=== PATIENT | female | born 1960 | race American Indian/Alaskan Native ===

== ENCOUNTER 2017-07-10 23:21 | Emergency (ER) | payer SELFPAY | END 2017-07-11 | disposition left against medical advice (07) | LOC: ED 23:21 | DX: H57.12 Ocular pain, left eye (principal); Z88.6 Allergy status to analgesic agent; Z88.1 Allergy status to other antibiotic agents; Z53.21 Procedure and treatment not carried out due to patient leaving prior to being seen by health care provider ==

== ENCOUNTER 2017-07-11 10:53 | Emergency (ER) | payer BC ==
[2017-07-11 11:13] VITALS: BP 131/79
[2017-07-11] MEDS ORDERED: MOTRIN PO ONE (11:29)
[2017-07-11] MEDS ORDERED: FUL-GLO OP ONE (11:29)
== END 2017-07-11 11:55 | disposition home or self-care (01) ==
LOC: ED 10:53
DX: H16.002 Unspecified corneal ulcer, left eye (principal)
CPT/HCPCS: 99282

== ENCOUNTER 2017-08-12 20:37 | Emergency (ER) | payer BC ==
--- NOTE | 2017-08-12 22:31 | XRay Report ---
FINAL REPORT EXAM: XR FINGER(S) 2+V RT HISTORY: RIGHT MIDDLE FINGER PAIN TECHNIQUE: Frontal view of right hand and 2 views of right long finger. PRIORS: None. FINDINGS: Joint spaces maintained. No apparent fracture or dislocation. Soft tissues grossly unremarkable. IMPRESSION: 1. No acute osseous abnormality.
[2017-08-13 00:06] VITALS: BP 130/79
== END 2017-08-12 20:45 | disposition left against medical advice (07) ==
LOC: ED 20:37
DX: Z53.21 Procedure and treatment not carried out due to patient leaving prior to being seen by health care provider (principal)

== ENCOUNTER 2017-08-19 14:32 | Outpatient (CLI) | payer BC ==
--- NOTE | 2017-08-21 09:45 | Mammography Report ---
Bilateral mammogram with tomosynthesis right breast: Compared to 11/26/15.. CAD study utilized. Findings: Heterogeneous breast parenchyma bilaterally. No mass or microcalcification or focal asymmetry on michael. Biopsy clip right breast. Benign axilla. BI-RADS CATEGORY: 2 = Benign ACR BI-RADS MAMMOGRAPHIC CODES: 0 = Needs additional imaging evaluation; 1 = Negative; 2 = Benign; 3 = Probably benign; 4 = Suspicious; 5 = Malignant; 6 = Known biopsy-proven malignancy COMMENT: 1. Dense breast tissue, i.e., adenosis, fibrocystic changes, etc., may obscure an underlying neoplasm. 2. Approximately 10% of cancers are not detected with mammography. 3. A negative mammography report should not delay biopsy if a clinically suspicious mass is present.right breast. Benign axillary nodes. Impression: Benign findings. Annual followup recommended.
== END 2017-08-19 14:33 | disposition home or self-care (01) ==
LOC: MAMMO 14:32
PROVIDERS: ATTEND Family Medicine
DX: Z12.31 Encounter for screening mammogram for malignant neoplasm of breast (principal)
CPT/HCPCS: 77063; G0202; 77067

== ENCOUNTER 2017-09-14 08:34 | Emergency (ER) | payer BC ==
[2017-09-14 08:45] VITALS: BP 133/74
--- NOTE | 2017-09-14 09:40 | Emergency Department Report ---
ED Upper Extremity Inj HPI - General Chief Complaint: Extremity Injury, Upper Stated Complaint: RT MIDDLE FINGER PAIN Time Seen by Provider: 09/14/17 09:24 Source: patient Mode of arrival: Ambulatory Limitations: No Limitations - History of Present Illness Initial Comments: This is a 56-year-old female nontoxic, well nourished in appearance, no acute signs of distress presents to the ED complaining of right third digit finger times one month. He stated last month on 08/12/2017 she injured her right middle finger when her phone fell between her car seat and she tried to get it and had a twisting sensation of the right third digit was developed pain and swelling. Patient stated that swelling has subsided but there is still pain. Patient discussed pain as aching with level of 8 out of 10. She denies any new trauma to the region. Denies joint redness, joint swelling, warmth to touch, fever, chills, nausea, vomiting, chest pain, shortness of breath, numbness or tingling. Patient states allergies to influenza. Medical history includes total hysterectomy. Patient states she was seen here last month and received an x-ray with negative for fractures and patient received a splint and was instructed to follow-up with the orthopedic doctor but patient states she never did. Patient now presents to the ED stating that the pain has not subsided. Complaint: Injury to:: right, finger -: month(s) (1) Other Extremity Injury: Fingers: Right (third digit of the right hand) Other Injuries: none Place: outdoors Severity scale (0 -10): 8 Improves With: none Worsens With: none Context: injury Associated Symptoms: denies other symptoms. denies: weakness, numbness, neck pain, suspects foreign body, nausea/vomiting, heard/felt popping sensat - Related Data Previous Rx's Medication Instructions Recorded Last Taken Type Ibuprofen [Motrin] 600 mg PO Q8H PRN #20 tablet 07/11/17 Unknown Rx Tobramycin 0.3% [Tobrex] 1 drop OS QID #1 bottle 07/11/17 Unknown Rx Ibuprofen [Motrin 600 MG tab] 600 mg PO Q8H PRN #30 tablet 09/14/17 Unknown Rx Allergies Allergy/AdvReac Type Severity Reaction Status Date / Time influenza virus vacc Allergy Shortness Verified 07/11/17 11:14 trivalent, spl of Breath [From Fluzone] PPD black rubber mix Allergy Unknown Verified 07/11/17 11:14 ED Review of Systems ROS: Stated complaint: RT MIDDLE FINGER PAIN Other details as noted in HPI Constitutional: denies: chills, fever Eyes: denies: eye pain, eye discharge, vision change ENT: denies: ear pain, throat pain Respiratory: denies: cough, shortness of breath, wheezing Cardiovascular: denies: chest pain, palpitations Endocrine: no symptoms reported Gastrointestinal: denies: abdominal pain, nausea, diarrhea Genitourinary: denies: urgency, dysuria, discharge Musculoskeletal: denies: back pain, joint swelling, arthralgia Skin: denies: rash, lesions Neurological: denies: headache, weakness, paresthesias Psychiatric: denies: anxiety, depression Hematological/Lymphatic: denies: easy bleeding, easy bruising ED Past Medical Hx - Past Medical History Additional medical history: total hysterectomy - Surgical History Additional Surgical History: HYSTERECTOMY - Social History Smoking Status: Never Smoker Substance Use Type: None - Medications Home Medications: Home Medications Medication Instructions Recorded Confirmed Last Taken Type Ibuprofen [Motrin] 600 mg PO Q8H PRN #20 tablet 07/11/17 Unknown Rx Tobramycin 0.3% [Tobrex] 1 drop OS QID #1 bottle 07/11/17 Unknown Rx Ibuprofen [Motrin 600 MG tab] 600 mg PO Q8H PRN #30 tablet 09/14/17 Unknown Rx ED Physical Exam - General Limitations: No Limitations General appearance: alert, in no apparent distress - Head Head exam: Present: atraumatic, normocephalic - Eye Eye exam: Present: normal appearance, PERRL, EOMI. Absent: scleral icterus, conjunctival injection, nystagmus, periorbital swelling, periorbital tenderness Pupils: Present: normal accommodation - ENT ENT exam: Present: normal exam, normal orophraynx, mucous membranes moist, TM's normal bilaterally, normal external ear exam - Neck Neck exam: Present: normal inspection, full ROM. Absent: tenderness, meningismus, lymphadenopathy, thyromegaly - Respiratory Respiratory exam: Present: normal lung sounds bilaterally. Absent: respiratory distress, wheezes, rales, rhonchi, stridor, chest wall tenderness, accessory muscle use, decreased breath sounds, prolonged expiratory - Cardiovascular Cardiovascular Exam: Present: regular rate, normal rhythm, normal heart sounds. Absent: bradycardia, tachycardia, irregular rhythm, systolic murmur, diastolic murmur, rubs, gallop - GI/Abdominal GI/Abdominal exam: Present: soft, normal bowel sounds. Absent: distended, tenderness, guarding, rebound, rigid, diminished bowel sounds - Rectal Rectal exam: Present: deferred - Extremities Exam Extremities exam: Present: normal inspection, full ROM, tenderness, normal capillary refill. Absent: pedal edema, joint swelling, calf tenderness - Expanded Upper Extremity Exam Right General: Present: normal inspection Shoulder Exam: Present: normal inspection, full ROM Upper Arm exam: Present: normal inspection, full ROM Elbow exam: Present: normal inspection, full ROM Forearm Wrist exam: Present: normal inspection, full ROM Hand Wrist exam: Present: normal inspection, full ROM, tenderness. Absent: swelling, abrasion, laceration, ecchymosis, deformity, crepidus, dislocation, erythema, amputation, nail avulsion, subungual hematoma Hand L/R Back: 1 - Tenderness Neuro motor exam: Present: wrist extension intact, thumb opposition intact, thumb IP flexion intact, thumb adduction intact, fingers 2-5 abduction intact Neurosensory exam: Present: 2-point discrimination, radial nerve intact, ulnar nerve intact, median nerve intact Vascular: Present: vascular compromise, normal capillary refill, radial pulse, brachial pulse, ulnar pulse - Back Exam Back exam: Present: normal inspection, full ROM. Absent: tenderness, CVA tenderness (R), CVA tenderness (L), muscle spasm, paraspinal tenderness, vertebral tenderness, rash noted - Neurological Exam Neurological exam: Present: alert, oriented X3, CN II-XII intact, normal gait, reflexes normal - Psychiatric Psychiatric exam: Present: normal affect, normal mood - Skin Skin exam: Present: warm, dry, intact, normal color. Absent: rash - Other Other exam information: Normal capillary refill with normal range of motion. No joint redness or joint swelling. No cellulitis is noted. Not warm to touch. ED Course Vital Signs 09/14/17 08:41 Temperature 98.5 F Pulse Rate 71 Respiratory 16 Rate Blood Pressure 133/74 O2 Sat by Pulse 99 Oximetry - Reevaluation(s) Reevaluation #1: 09/14/17 09:39 Patient is speaking in full sentences with no signs of distress noted. ED Medical Decision Making - Medical Decision Making 56-year-old female presents with pain to the right distal third digit. Patient is stable and was evaluated by me. There is no obvious signs of any cellulitis or joint swelling or joint redness. Patient received another x-ray and was dictated radiologist. Normal examination. Patient notified of x-ray results with no further questions nor by the patient. Patient received another splint to the finger due to pain and was referred to follow-up with Dr. Apodaca or another orthopedic doctor. Patient is hemodynamically stable with stable vital signs. At time time of discharge, the patient does not seem toxic or ill in appearance. No acute signs of distress noted. Patient agrees to discharge treatment plan of care. No further questions noted by the patient. Critical care attestation.: If time is entered above; I have spent that time in minutes in the direct care of this critically ill patient, excluding procedure time. ED Disposition Clinical Impression: Finger pain, right Disposition: [id number] TO HOME OR SELFCARE Is pt being admited?: No Does the pt Need Aspirin: No Condition: Stable Instructions: Finger Sprain (ED), Ibuprofen (By mouth), RICE Therapy (ED) Additional Instructions: Follow-up with Dr. Apodaca or another orthopedic doctor in 3-5 days or if symptoms worsen and continue return to emergency room as soon as possible possible. Prescriptions: Ibuprofen [Motrin 600 MG tab] 600 mg PO Q8H PRN #30 tablet PRN Reason: Pain Referrals: TRISTON APODACA MD [Staff Physician] - 3-5 Days PRIMARY CARE, [Referring] - 3-5 Days [facility] [Outside] - 3-5 Days [facility] [Outside] - 3-5 Days Forms: Work/School Release Form(ED)
[2017-09-14] MEDS: MOTRIN PO ONE (09:46)
--- NOTE | 2017-09-14 10:33 | XRay Report ---
RIGHT FINGER RADIOGRAPHS INDICATION: Right third digit swelling. COMPARISON: 08/12/2017. FINDINGS: AP view of the right hand with oblique and lateral projections of the third digit demonstrate intact bones, joints and soft tissues, though some images limited due to motion. No focal suspicious erosions. CONCLUSION: No acute radiographic abnormality or significant interval change on this partly limited exam, as described. Thank you for the opportunity to participate in this patient's care.
== END 2017-09-14 11:35 | disposition home or self-care (01) ==
LOC: ED 08:34
DX: M79.644 Pain in right finger(s) (principal); Z88.8 Allergy status to other drugs, medicaments and biological substances; X58.XXXA Exposure to other specified factors, initial encounter; Y93.89 Activity, other specified; Y92.89 Other specified places as the place of occurrence of the external cause; Y99.8 Other external cause status

== ENCOUNTER 2017-12-01 07:44 | Day surgery (SDC) | payer BC ==
[2017-12-01] MEDS ORDERED: ECOTRIN PO ONE (08:15)
[2017-12-01] MEDS ORDERED: HEPARIN/NS 5000 UNIT/500ML(CATH LAB) 1,500 ML IR ONE (08:36)
[2017-12-01] MEDS ORDERED: HEPARIN 10,000 UNITS/10 ML ONE (08:37)
[2017-12-01] MEDS ORDERED: CALAN ONE (08:37)
[2017-12-01] MEDS ORDERED: NITROGLYCERIN SYRINGE 3 ML ONE (08:37)
[2017-12-01] MEDS ORDERED: XYLOCAINE 2% INFILTRATI ONE (08:37)
[2017-12-01] MEDS ORDERED: VERSED ONE (08:38)
[2017-12-01] MEDS ORDERED: SUBLIMAZE ONE (08:38)
[2017-12-01 08:47] LABS: BUN/Creatinine Ratio 16; Blood Urea Nitrogen 11 mg/dL (7-17); Calcium 9.4 mg/dL (8.4-10.2); Hemolysis Index 5
[2017-12-01 08:48] LABS: Basophils % (Auto) 0.5 % (0.0-1.8); Hematocrit 40.8 % (30.3-42.9); Hemoglobin 13.2 gm/dl (10.1-14.3); Lymphocytes # (Auto) 1.2 K/mm3 (1.2-5.4); Lymphocytes % (Auto) 34.7 % (13.4-35.0); Mean Corpuscular HGB Conc 32 % (30-34); Mean Corpuscular Hemoglobin 28 pg (28-32); Mean Corpuscular Volume 86 fl (79-97); Monocytes # (Auto) 0.2 K/mm3 (0.0-0.8); Monocytes % (Auto) 7.2 % (0.0-7.3); Platelet Count 224 K/mm3 (140-440); Red Blood Count 4.76 M/mm3 (3.65-5.03); Red Cell Distribution Width 14.4 % (13.2-15.2)
[2017-12-01 08:57] LABS: INR 0.94 (0.87-1.13)
[2017-12-01] MEDS ORDERED: NACL 0.9% 500 ML 500 ML IV SCH (09:00)
--- NOTE | 2017-12-01 11:33 | Discharge Summary ---
Short Stay Discharge Plan Activity: advance as tolerated Weight Bearing Status: Partial Weight Bearing Diet: low fat, low cholesterol, low salt Wound: keep clean and dry Special Instructions: no heavy lifting (3 days) Follow up with: PRIMARY MD MAYO [Primary Care Provider] - 7 Days NORMA ZAMBRANO MD [Staff Physician] - 7 Days
--- NOTE | 2017-12-01 11:58 | Cardiac Catherization Report ---
REASON FOR PROCEDURE: Chest pain, shortness of breath, and progressive angina pectoris. PROCEDURES PERFORMED: 1. Right heart catheterization. 2. Left heart catheterization. 3. Left ventricular angiography. 4. Selective left and right coronary angiography. DESCRIPTION IN PROCEDURE: The patient was prepped and draped in a sterile fashion after informed consent. Right femoral artery and vein were both entered using the Seldinger technique. A 6-Martiniquais sheath was placed in the artery and an 8 Martiniquais sheath in the vein. [place]-Arnoldo catheterization was performed using a [place]Arnold[place] catheter, which was advanced to the pulmonary artery position. A pigtail catheter was then advanced into the left ventricle. Simultaneous left and right heart filling pressures were measured. Cardiac output was measured using thermodilution method. The [place]oldo catheter was then withdrawn. Left ventricle angiography was performed with a pigtail catheter. The pigtail was then withdrawn across the aortic valve and transaortic pressure gradient was recorded. Finally, we performed a selective left and right coronary angiography using #4 right and left [place] catheters. The catheters and the sheaths were removed, hemostasis achieved using manual compression. The patient was returned to the postprocedure unit in stable condition. There were no complications. FINDINGS: HEMODYNAMICS: The mean right atrial pressure was 15. Right ventricular pressure was 45/18. Pulmonary artery pressure was 40/20. The mean pulmonary artery wedge pressure was 20, with V waves of 28. Left ventricular end diastolic pressure was 20. Ascending aortic pressure was 146/74. There was no significant pressure gradient on pullback across the aortic valve. Cardiac output was 4.59 liters per minute. CORONARY ANGIOGRAPHY: The left main coronary artery was free of significant disease. The left anterior descending artery contained mild diffuse irregularities in its proximal and mid segment. Distally, there was a long segment of mild narrowing of the LAD, with up to 20% luminal stenosis. A medium sized mid diagonal branch of the LAD contained moderate ostial narrowing. A large ramus intermedius artery contained moderate narrowing at its ostium. The circumflex artery and its obtuse marginal branches contained mild luminal irregularities. The right coronary artery was dominant. This vessel similarly contained mild irregularities in its mid segment. Left ventricular systolic function was well preserved, ejection fraction 50-55%. CONCLUSION: 1. Moderate increase in right and left heart filling pressures, mild pulmonary hypertension. 2. Mild diffuse atherosclerosis as reported above, no severe obstructive lesions identified. 3. Left ventricular systolic function is well preserved, ejection fraction 50-55%. RECOMMENDATION: 1. Risk factor modification and medical therapy. 2. Echocardiography for further assessment of valvular competence, particularly mitral valve. JOB# [id number] CA/NTS
[2017-12-01] MEDS ORDERED: NACL 0.9% 1000 ML 1,000 ML IV SCH (12:00)
[2017-12-01 16:06] VITALS: BP 128/59
== END 2017-12-01 17:00 | disposition home or self-care (01) ==
LOC: CATHLABREC 07:44
PROVIDERS: ATTEND Internal Medicine Cardiovascular Disease
DX: I25.118 Atherosclerotic heart disease of native coronary artery with other forms of angina pectoris (principal); Z79.82 Long term (current) use of aspirin; Z79.899 Other long term (current) drug therapy
CPT/HCPCS: 36415; 80048; 85025; 85610; 85730; 93005; 93010; 93306; 93460; 99152; 99153; C1894; J1644; J2250; J3010; J7040; Q9967

== ENCOUNTER 2017-12-22 09:50 | Outpatient (CLI) | payer BC ==
--- NOTE | 2017-12-22 11:07 | Cat Scan Report ---
CTA CHEST: HISTORY: Dyspnea. COMPARISON: none. TECHNIQUE: Helical CT in 1.25mm intervals following IV contrast. Pulmonary embolus protocol. Sagittal and coronal reformatted images. Rotational MIP images. FINDINGS: Contrast bolus is satisfactory. No pulmonary embolus is identified. Thyroid gland: Normal. Tracheobronchial tree: Normal. Esophagus: Normal. Heart: Normal. Pericardium: Normal. Mediastinum: Normal. Lung Jean: normal. Pleural Spaces: Normal. Musculoskeletal: Normal. IMPRESSION: No evidence for pulmonary embolus. Unremarkable CT chest with contrast.
== END 2017-12-22 09:51 | disposition home or self-care (01) ==
LOC: CT 09:50
PROVIDERS: ATTEND Specialist
DX: J45.20 Mild intermittent asthma, uncomplicated (principal)
CPT/HCPCS: 71275; Q9967

== ENCOUNTER 2017-12-28 13:14 | Outpatient (CLI) | payer BC ==
--- NOTE | 2017-12-28 15:23 | XRay Report ---
CHEST ONE VIEW INDICATION: Pulmonary hypertension. COMPARISON: 02/02/2017. FINDINGS: Portable, single, frontal chest radiograph demonstrates slight exaggerated cardiomediastinal silhouette. Clear lungs. Thoracic spondylosis. CONCLUSION: No acute disease in the chest. Thank you for the opportunity to participate in this patient's care.
--- NOTE | 2017-12-28 15:23 | Nuclear Medicine Report ---
VENTILATION PERFUSION SCAN INDICATION: Pulmonary hypertension. COMPARISON: 12/22/2017 chest CTA. FINDINGS: VQ scan performed in anterior, posterior, lateral and oblique projections. 5 mCi of technetium 99m MAA was used for the perfusion assessment while 15 millicuries of Xenon 133 was utilized for the ventilation portion of the study. Ventilation images demonstrate uniform radiotracer distribution throughout both lungs. The perfusion matches the ventilation without large lobar or definite segmental defects. Accompanying chest radiograph demonstrates no acute disease. CONCLUSION: No evidence of pulmonary embolism. Thank you for the opportunity to participate in this patient's care.
== END 2017-12-28 13:15 | disposition home or self-care (01) ==
LOC: NM 13:14
PROVIDERS: ATTEND Specialist
DX: I27.0 Primary pulmonary hypertension (principal); M47.894 Other spondylosis, thoracic region
CPT/HCPCS: 36415; 71045; 78582; 82164; 85652; 86021; 86038; 86140; 86200; 86235; 86618; A9540; A9558